=== PATIENT | male | born 1965 | race Two or more races ===

== ENCOUNTER 2017-06-25 08:42 | Day surgery (SDC) | payer BC ==
[2017-06-22 10:19] VITALS: BMI 25.4
[2017-06-25] MEDS ORDERED: ONDANSETRON 4 MG/2 ML VIAL IVPUSH PRN (09:40)
[2017-06-25] MEDS ORDERED: oxyCODONE HCL 5 MG TABLET PO PRN (09:40)
[2017-06-25] MEDS ORDERED: LACTATED RINGERS SOLUTION 1,000 ML IV SCH (09:45)
[2017-06-25] MEDS ORDERED: LEVOFLOXACIN 500 MG IVPB 100 ML IVPB ONE (09:57)
[2017-06-25] MEDS ORDERED: MIDAZOLAM HCL 2 MG/2 ML SINGLE DOSE VIAL ONE (10:17)
[2017-06-25] MEDS ORDERED: LEVOFLOXACIN 500 MG PREMIX BAG IVPB ONE (10:27)
[2017-06-25] MEDS ORDERED: PROPOFOL 20 ML ONE (10:32)
[2017-06-25 11:56] VITALS: TEMP 97.8
[2017-06-25 13:15] VITALS: BP 115/75; PULSE 54
--- NOTE | 2017-06-25 17:04 | OP ---
Operative Note - Note: Operative Date: 06/25/17 Pre-Operative Diagnosis: right renal stone Operation: right eswl Post-Operative Diagnosis: Same as Pre-op Surgeon: Shane Mccarthy
--- NOTE | 2017-06-26 09:23 | OP ---
DATE OF OPERATION: 06/25/2017 PREOPERATIVE DIAGNOSIS: Right renal stone. POSTOPERATIVE DIAGNOSIS: Right renal stone. PROCEDURE: Right extracorporeal shock wave lithotripsy. ATTENDING: Shane Bean MD ANESTHESIA: General. OPERATION: The patient was brought in the operating room and placed in supine position on the operating room table. Ultrasonography and fluoroscopy were performed. A 10-mm right lower pole stone was identified. Anesthesia was then given to the patient. The patient was given Levaquin 500 mg preoperatively for surgical prophylaxis. Extracorporeal shock wave lithotripsy was performed with 2500 impulses at 20 joules of power delivered to the stone. Excellent fragmentation was noted under real time ultrasonography and fluoroscopy. No complications were noted. The patient tolerated the procedure very well. iMke [id number]
== END 2017-06-25 13:30 | disposition home or self-care (01) ==
LOC: JASU-SURG 08:42
PROVIDERS: ATTEND Urology
PROC: 0TF3XZZ Fragmentation in Right Kidney Pelvis, External Approach (ICD-10-PCS; principal; 2017-06-25 10:15)
DX: N20.0 Calculus of kidney (principal)
CPT/HCPCS: 94760

== ENCOUNTER 2021-05-09 04:46 | Day surgery (SDC) | payer OTHER ==
[2021-05-06 09:20] VITALS: BMI 27.6
[2021-05-09] MEDS ORDERED: MIDAZOLAM HCL 2 MG/2 ML SINGLE DOSE VIAL ONE (14:47)
[2021-05-09 18:02] VITALS: BP 134/80; PULSE 48; TEMP 97
== END 2021-05-09 17:15 | disposition home or self-care (01) ==
LOC: JASU-SURG 04:46
PROVIDERS: ATTEND Urology
PROC: 0TF4XZZ Fragmentation in Left Kidney Pelvis, External Approach (ICD-10-PCS; principal; 2021-05-09 15:30)
DX: N20.0 Calculus of kidney (principal)

== ENCOUNTER 2022-08-11 23:23 | Inpatient (IN) | payer OTHER ==
[2022-08-12 00:46] LABS: THROAT:GRP A STREP NOT DETECTED (NOTDETECTED)
[2022-08-12] MEDS ORDERED: CLINDAMYCIN 900 MG PREMIX IVPB 900 MG/50 ML BAG IVPB ONE ×2 (03:04→04:34)
[2022-08-12 04:38] LABS: EOS % 1.7 % (0-4.5); HEMATOCRIT 41.2 % (35.4-49); HEMOGLOBIN 14.6 GM/dL (11.7-16.9); LYMPH % 17.2 % (8-40); MCH 32.6 pg (25.7-33.7); MCHC 35.3 g/dl (32.0-35.9); MEAN CELL VOLUME 92.3 fl (80-96); MEAN PLT VOLUME 7.3 fl (7.5-11.1); MONO % 9.3 % (3.8-10.2); NEUT % 70.8 % (42.8-82.8); PLATELET COUNT 268 10^3/uL (134-434); RBC 4.47 M/mm3 (4.00-5.60); RDW 13.1 % (11.9-15.9); WHITE BLOOD COUNT 9.1 K/mm3 (4.0-10.0)
[2022-08-12 05:02] LABS: ALBUMIN 3.5 g/dl (3.4-5.0); CALCIUM 8.8 mg/dL (8.5-10.1)
[2022-08-12 05:06] LABS: CREATININE 2.1 mg/dL (0.55-1.3)
[2022-08-12 05:07] LABS: TOT PROT 7.2 g/dl (6.4-8.2)
[2022-08-12] MEDS ORDERED: DOCUSATE SODIUM 100 MG CAPSULE (FP) PO PRN (05:33)
[2022-08-12] MEDS ORDERED: ACETAMINOPHEN 1000 MG/100 ML BAG IVPB PRN ×2 (05:38→05:44)
[2022-08-12] MEDS ORDERED: LORATADINE 10 MG TABLET PO PRN (05:47)
[2022-08-12] MEDS ORDERED: BENZOCAINE/MENTHOL (CHLORASEPTIC ) LOZENGE MM PRN (12:19)
[2022-08-12] MEDS ORDERED: ARTIFICIAL TEARS (POLYVINYL ALCOHOL) OPTH DROPS OU PRN (13:33)
[2022-08-12] MEDS ORDERED: CLINDAMYCIN 600MG PREMIX IVPB 600 MG/50 ML BAG IVPB ONE (14:38)
[2022-08-12] MEDS ORDERED: ERYTHROMYCIN 0.5% OPHTHALMIC OINTMENT 3.5 GM TUBE ONE (14:38)
[2022-08-12] MEDS ORDERED: ENOXAPARIN NA (PORCINE) 40 MG/0.4 ML DISP.SYRIN SQ ONE (14:39)
[2022-08-12] MEDS: ERYTHROMYCIN 0.5% OPHTHALMIC OINTMENT 3.5 GM TUBE OU SCH ×3 (15:05→19:07)
[2022-08-12] MEDS: HYDROCHLOROTHIAZIDE 12.5 MG CAPSULE (FP) PO SCH (15:05)
[2022-08-12] MEDS: CLINDAMYCIN 600MG PREMIX IVPB 600 MG/50 ML BAG IVPB SCH ×2 (15:05→19:06)
[2022-08-12] MEDS: ENOXAPARIN NA (PORCINE) 40 MG/0.4 ML DISP.SYRIN SQ SCH (15:06)
[2022-08-12] MEDS ORDERED: TAMSULOSIN HCL 0.4 MG CAP ONE (19:23)
[2022-08-12] MEDS: TAMSULOSIN HCL 0.4 MG CAP PO SCH (19:26)
[2022-08-13 01:23] VITALS: BMI 27.6
[2022-08-13] MEDS: CLINDAMYCIN 600MG PREMIX IVPB 600 MG/50 ML BAG IVPB SCH ×3 (01:37→17:55)
[2022-08-13] MEDS: ERYTHROMYCIN 0.5% OPHTHALMIC OINTMENT 3.5 GM TUBE OU SCH ×5 (02:11→23:27)
[2022-08-13 09:31] LABS: HEMATOCRIT 42.5 % (35.4-49); HEMOGLOBIN 14.9 GM/dL (11.7-16.9); MCH 31.8 pg (25.7-33.7); MEAN PLT VOLUME 7.7 fl (7.5-11.1); MONO % 12.2 % (3.8-10.2); NEUT % 64.8 % (42.8-82.8); PLATELET COUNT 307 10^3/uL (134-434); RBC 4.67 M/mm3 (4.00-5.60); RDW 12.8 % (11.9-15.9); WHITE BLOOD COUNT 7.7 K/mm3 (4.0-10.0)
[2022-08-13 09:35] LABS: INR 1.18 (0.83-1.09); PROTHROMBIN TIME (PATIENT) 13.6 SEC (9.7-13.0)
[2022-08-13 09:38] LABS: ACTIVATED PTT 28.9 SECONDS (25.2-36.5)
[2022-08-13 09:42] LABS: CALCIUM 8.9 mg/dL (8.5-10.1)
[2022-08-13 09:43] LABS: BLOOD UREA NITROGEN 31.7 mg/dL (7-18)
[2022-08-13 09:46] LABS: CREATININE 2.1 mg/dL (0.55-1.3)
[2022-08-13] MEDS ORDERED: METOPROLOL TARTRATE 50 MG TABLET (FP) PO SCH (10:00)
[2022-08-13] MEDS: TAMSULOSIN HCL 0.4 MG CAP PO SCH (10:51)
[2022-08-13] MEDS: HYDROCHLOROTHIAZIDE 12.5 MG CAPSULE (FP) PO SCH (10:51)
[2022-08-13] MEDS: ENOXAPARIN NA (PORCINE) 40 MG/0.4 ML DISP.SYRIN SQ SCH (12:43)
[2022-08-13 23:17] VITALS: RESP 18
[2022-08-14] MEDS: CLINDAMYCIN 600MG PREMIX IVPB 600 MG/50 ML BAG IVPB SCH ×2 (01:41→09:48)
[2022-08-14] MEDS: ERYTHROMYCIN 0.5% OPHTHALMIC OINTMENT 3.5 GM TUBE OU SCH (05:43)
[2022-08-14] MEDS: TAMSULOSIN HCL 0.4 MG CAP PO SCH (09:47)
[2022-08-14] MEDS: HYDROCHLOROTHIAZIDE 12.5 MG CAPSULE (FP) PO SCH (09:47)
[2022-08-14] MEDS: ENOXAPARIN NA (PORCINE) 40 MG/0.4 ML DISP.SYRIN SQ SCH (09:49)
[2022-08-14 09:54] VITALS: BP 146/98; PULSE 81; TEMP 98.1
[2022-08-14 10:43] LABS: EOS % 2.8 % (0-4.5); HEMATOCRIT 46.1 % (35.4-49); MCH 31.9 pg (25.7-33.7); MCHC 34.8 g/dl (32.0-35.9); MEAN CELL VOLUME 91.5 fl (80-96); MEAN PLT VOLUME 7.4 fl (7.5-11.1); MONO % 9.1 % (3.8-10.2); NEUT % 69.1 % (42.8-82.8); PLATELET COUNT 336 10^3/uL (134-434); RBC 5.03 M/mm3 (4.00-5.60); RDW 12.7 % (11.9-15.9); WHITE BLOOD COUNT 7.6 K/mm3 (4.0-10.0)
[2022-08-14 11:08] LABS: CALCIUM 9.5 mg/dL (8.5-10.1)
[2022-08-14 11:13] LABS: BLOOD UREA NITROGEN 31.4 mg/dL (7-18)
[2022-08-14 11:15] LABS: CREATININE 2.2 mg/dL (0.55-1.3)
== END 2022-08-14 12:05 | disposition home or self-care (01) | DRG 113 ==
LOC: JER 23:23 → JERBED 08-12 03:06 → J8W 08-13 00:39
PROVIDERS: ADMIT Internal Medicine; ATTEND Internal Medicine
DX: J02.8 Acute pharyngitis due to other specified organisms (principal); L03.221 Cellulitis of neck; I13.10 Hypertensive heart and chronic kidney disease without heart failure, with stage 1 through stage 4 chronic kidney disease, or unspecified chronic kidney disease; H10.33 Unspecified acute conjunctivitis, bilateral; N18.9 Chronic kidney disease, unspecified
CPT/HCPCS: 0241U-QW; 36415; 70490-TC; 80048; 80053; 85025; 85610; 85730; 87040; 87070; 87651; 93005; 93010; 99285-25

== ENCOUNTER 2023-02-26 03:47 | Day surgery (SDC) | payer OTHER ==
[2023-02-22 12:40] VITALS: BMI 26.6
[2023-02-26] MEDS ORDERED: MIDAZOLAM HCL 2 MG/2 ML SINGLE DOSE VIAL ONE (08:49)
[2023-02-26] MEDS ORDERED: KETOROLAC TROMETHAMINE 30 MG/1 ML VIAL ONE (08:54)
[2023-02-26] MEDS ORDERED: ONDANSETRON 4 MG/2 ML VIAL ONE (08:54)
[2023-02-26 14:02] VITALS: RESP 18
[2023-02-26 14:18] VITALS: BP 132/75; PULSE 58; TEMP 98.7
== END 2023-02-26 11:05 | disposition home or self-care (01) ==
LOC: JASU-SURG 03:47
PROVIDERS: ATTEND Urology
PROC: 0TF4XZZ Fragmentation in Left Kidney Pelvis, External Approach (ICD-10-PCS; principal; 2023-02-26 10:00)
DX: N20.0 Calculus of kidney (principal)